=== PATIENT | female | born 1940 | race Caucasian/White ===

== ENCOUNTER 2017-05-30 07:54 | Day surgery (SDC) | payer MEDICARE, OTHER ==
[~2017-05-30] VITALS: Ht 157.5 cm; Wt 98.2 kg
[~2017-05-30 07:54] MED LIST: METFORMIN; METROPOLOL PO; TETRACAINE HCL/PF 0.5% 4 ML OPHTHALMIC SOLUTION OS ONE
[2017-05-30] MEDS ORDERED: TETRACAINE HCL/PF 0.5% 4 ML OPHTHALMIC SOLUTION ONE (08:11)
[2017-05-30] MEDS ORDERED: DICLOFENAC SODIUM 0.1% 2.5 ML OPHTHALMIC SOLUTION ONE (08:11)
[2017-05-30] MEDS ORDERED: CYCLOPENTOLATE HCL 2% 2 ML OPHTHALMIC SOLUTION ONE (08:11)
[2017-05-30] MEDS ORDERED: MOXIFLOXACIN HCL 0.5% 3 ML OPHTHALMIC SOLUTION ONE (08:11)
[2017-05-30] MEDS ORDERED: RINGERS SOLUTION,LACTATED 500 ML IV ONE ×2 (08:11→08:15)
[2017-05-30] MEDS ORDERED: PHENYLEPHRINE HCL 2.5% 2 ML OPHTHALMIC SOLUTION ONE (08:11)
[2017-05-30] MEDS ORDERED: GLIP5 PO (08:33)
[2017-05-30] MEDS ORDERED: LOSA50TA37 PO (08:33)
[2017-05-30] MEDS ORDERED: SAXA5TAB PO (08:33)
[2017-05-30] MEDS ORDERED: NIFE30TA50 PO (08:33)
[2017-05-30] MEDS ORDERED: METF500T4 PO (08:33)
[2017-05-30] MEDS ORDERED: METO50 PO (08:33)
[2017-05-30] MEDS ORDERED: ATOR10TA84 PO (08:33)
[2017-05-30 08:57] LABS: GLUCOSE,POINT OF CARE 195 MG/DL (70-110)
[2017-05-30] MEDS: MOXIFLOXACIN HCL 0.5% 3 ML OPHTHALMIC SOLUTION OS SCH ×3 (08:58→09:18)
[2017-05-30] MEDS: CYCLOPENTOLATE HCL 2% 2 ML OPHTHALMIC SOLUTION OS SCH ×3 (08:58→09:08)
[2017-05-30] MEDS: DICLOFENAC SODIUM 0.1% 2.5 ML OPHTHALMIC SOLUTION OS SCH ×3 (08:58→09:18)
[2017-05-30] MEDS: PHENYLEPHRINE HCL 2.5% 2 ML OPHTHALMIC SOLUTION OS SCH ×3 (08:58→09:08)
[2017-05-30] MEDS ORDERED: AcetaZOLAMIDE 250 MG TABLET PO ONE (09:45)
[2017-05-30] MEDS ORDERED: ACETAMINOPHEN/CODEINE 300-30 MG TABLET PO PRN (09:45)
[2017-05-30] MEDS ORDERED: AcetaZOLAMIDE 250 MG TABLET ONE (10:18)
[2017-05-30] MEDS ORDERED: MIDAZOLAM HCL 2 MG/2 ML VIAL IVP ONE (12:00)
[2017-05-30] MEDS ORDERED: FentaNYL CITRATE-PF 100 MCG/2 ML VIAL IVP ONE (12:00)
== END 2017-05-30 10:50 | disposition home or self-care (01) ==
LOC: SURGERY 07:54
PROVIDERS: ATTEND Ophthalmology
DX: E11.36 Type 2 diabetes mellitus with diabetic cataract (principal); H25.12 Age-related nuclear cataract, left eye; I10 Essential (primary) hypertension; E66.9 Obesity, unspecified; Z79.4 Long term (current) use of insulin; Z98.890 Other specified postprocedural states; Z90.49 Acquired absence of other specified parts of digestive tract
CPT/HCPCS: 66984; 82962; C1780; J2250; J3010; J7120; 93005

== ENCOUNTER 2017-10-17 10:05 | Day surgery (SDC) | payer MEDICARE, OTHER ==
[~2017-10-17] VITALS: Ht 158.8 cm; Wt 95.0 kg
[~2017-10-17 10:05] MED LIST changes: +ATOR10TA84 PO; +GLIP5 PO; +LOSA50TA37 PO; +METF500T4 PO; -METFORMIN; +METO50 PO; -METROPOLOL PO; +NIFE30TA26 PO; +SAXA5TAB PO; -TETRACAINE HCL/PF 0.5% 4 ML OPHTHALMIC SOLUTION OS ONE
[2017-10-17] MEDS ORDERED: BRIMONIDINE TARTRATE 0.15% 5 ML OPHTHALMIC SOLUTION OS ONE (10:06)
[2017-10-17] MEDS ORDERED: LIDOCAINE HCL/PF 1% 2 ML VIAL IARTIC ONE (10:06)
[2017-10-17] MEDS ORDERED: HYALURONATE SOD/CHONDROITIN SOD 0.5 ML VIAL IO ONE (10:06)
[2017-10-17] MEDS ORDERED: HYALURONATE SODIUM 12 MG/ML 0.8 ML SYRINGE IO ONE (10:06)
[2017-10-17] MEDS ORDERED: MIDAZOLAM HCL 2 MG/2 ML VIAL IVP ONE (10:06)
[2017-10-17] MEDS ORDERED: POVIDONE-IODINE 10% 15 ML SOLUTION UD TP ONE (10:06)
[2017-10-17] MEDS ORDERED: TETRACAINE HCL VISCOUS 0.5% 5 ML OPHTHALMIC SOLUTION OS ONE (10:06)
[2017-10-17] MEDS ORDERED: EPINEPHrine 1:1,000 [1 MG/ML] AMP IM ONE (10:06)
[2017-10-17] MEDS ORDERED: CYCLOPENTOLATE HCL 2% 2 ML OPHTHALMIC SOLUTION ONE (10:23)
[2017-10-17] MEDS ORDERED: MOXIFLOXACIN HCL 0.5% 3 ML OPHTHALMIC SOLUTION ONE (10:23)
[2017-10-17] MEDS ORDERED: DICLOFENAC SODIUM 0.1% 2.5 ML OPHTHALMIC SOLUTION ONE (10:23)
[2017-10-17] MEDS ORDERED: PHENYLEPHRINE HCL 2.5% 2 ML OPHTHALMIC SOLUTION ONE (10:23)
[2017-10-17] MEDS ORDERED: RINGERS SOLUTION,LACTATED 500 ML IV ONE ×2 (10:23→10:45)
[2017-10-17] MEDS ORDERED: TETRACAINE HCL/PF 0.5% 4 ML OPHTHALMIC SOLUTION ONE (10:23)
[2017-10-17] MEDS ORDERED: ASPI-1107 PO (10:37)
[2017-10-17] MEDS ORDERED: OMEP20 PO (10:37)
[2017-10-17] MEDS ORDERED: DULA1.5P SQ (10:37)
[2017-10-17] MEDS ORDERED: AMOX500T2 PO (10:37)
[2017-10-17] MEDS ORDERED: TETRACAINE HCL/PF 0.5% 4 ML OPHTHALMIC SOLUTION OD ONE (10:45)
[2017-10-17] MEDS ORDERED: ACETAMINOPHEN/CODEINE 300-30 MG TABLET PO PRN (10:45)
[2017-10-17 11:06] LABS: GLUCOSE,POINT OF CARE 154 MG/DL (70-110)
[2017-10-17] MEDS: CYCLOPENTOLATE HCL 2% 2 ML OPHTHALMIC SOLUTION OD SCH ×3 (11:07→11:18)
[2017-10-17] MEDS: PHENYLEPHRINE HCL 2.5% 2 ML OPHTHALMIC SOLUTION OD SCH ×3 (11:07→11:18)
[2017-10-17] MEDS: DICLOFENAC SODIUM 0.1% 2.5 ML OPHTHALMIC SOLUTION OD SCH ×3 (11:08→11:28)
[2017-10-17] MEDS: MOXIFLOXACIN HCL 0.5% 3 ML OPHTHALMIC SOLUTION OD SCH ×3 (11:08→11:28)
[2017-10-17] MEDS ORDERED: AcetaZOLAMIDE 250 MG TABLET ONE (12:17)
[2017-10-17] MEDS ORDERED: AcetaZOLAMIDE 250 MG TABLET PO ONE (12:45)
== END 2017-10-17 13:00 | disposition home or self-care (01) ==
LOC: SURGERY 10:05
PROVIDERS: ATTEND Ophthalmology
DX: E11.36 Type 2 diabetes mellitus with diabetic cataract (principal); H25.11 Age-related nuclear cataract, right eye; I10 Essential (primary) hypertension; E66.01 Morbid (severe) obesity due to excess calories; Z90.710 Acquired absence of both cervix and uterus; Z90.49 Acquired absence of other specified parts of digestive tract; Z98.890 Other specified postprocedural states; Z79.899 Other long term (current) drug therapy
CPT/HCPCS: 66984; 82962; 93005; C1780; J0171; J2250; J3490 ×2; J7120